=== PATIENT | female | born 1955 | race African-American/Black ===

== ENCOUNTER 2020-11-15 08:53 | Day surgery (SDC) | payer SELFPAY ==
[2020-11-03 12:03] VITALS: BMI 32.5
[2020-11-15] MEDS ORDERED: DEXAMETHASONE SOD PHOSPHATE 4 MG/1 ML VIAL ONE (09:04)
[2020-11-15] MEDS ORDERED: ceFAZolin SODIUM 1 GM VIAL ONE (09:04)
[2020-11-15] MEDS ORDERED: LIDOCAINE HCL/PF 2% SDV 5ML VIAL ONE (09:04)
[2020-11-15] MEDS ORDERED: ROCURONIUM BROMIDE 50 MG/5 ML SYRINGE ONE (09:04)
[2020-11-15] MEDS ORDERED: MIDAZOLAM HCL 2 MG/2 ML SINGLE DOSE VIAL ONE ×2 (09:04)
[2020-11-15] MEDS ORDERED: ONDANSETRON 4 MG/2 ML VIAL ONE ×2 (09:04→17:19)
[2020-11-15] MEDS ORDERED: fentaNYL CITRATE 250 MCG/5 ML VIAL ONE (09:04)
[2020-11-15] MEDS ORDERED: PROPOFOL 20 ML ONE ×2 (09:04→12:52)
[2020-11-15] MEDS ORDERED: ACETAMINOPHEN INJECTION 100 ML IVPB ONE (10:20)
[2020-11-15] MEDS ORDERED: LIDOCAINE HCL 1%, 10 MG/ML (20ML VIAL) ONE (10:27)
[2020-11-15] MEDS ORDERED: EPINEPHrine 1:1,000 1 MG/1 ML - 30ML VIAL (INJECTION) ONE (10:27)
[2020-11-15] MEDS ORDERED: HEPARIN NA (PORCINE) 5,000 UNITS/ML 1ML VIAL ONE (10:39)
[2020-11-15] MEDS ORDERED: BACITRACIN 15 GM TUBE TOPICAL OINTMENT ONE (10:45)
[2020-11-15] MEDS ORDERED: HYDROmorphone HCL/PF 1 MG/ML VIAL ONE (11:57)
[2020-11-15] MEDS ORDERED: oxyCODONE HCL 5 MG TABLET PO PRN ×2 (16:41)
[2020-11-15] MEDS ORDERED: MORPHINE SULFATE 2 MG/ML VIAL IVPUSH PRN (16:41)
[2020-11-15] MEDS ORDERED: PROMETHAZINE HCL 25 MG/1 ML VIAL IVPUSH PRN (16:41)
[2020-11-15] MEDS ORDERED: ONDANSETRON 4 MG/2 ML VIAL IVPUSH PRN (16:41)
[2020-11-15] MEDS ORDERED: ONDANSETRON 4 MG/2 ML VIAL IVPB PRN (16:41)
[2020-11-15] MEDS ORDERED: LACTATED RINGERS SOLUTION 1,000 ML IV SCH (16:45)
[2020-11-15] MEDS ORDERED: CEFAZOLIN 1 GM in DEXTROSE 5%-WATER - 50 ML IVPB SCH (18:00)
[2020-11-15] MEDS: CEFAZOLIN 1 GM/D5W 1 GM/50 ML BAG IVPB SCH (19:13)
[2020-11-16] MEDS: CEFAZOLIN 1 GM/D5W 1 GM/50 ML BAG IVPB SCH ×2 (01:28→08:59)
[2020-11-16] MEDS: HEPARIN NA (PORCINE) 5,000 UNITS/ML 1ML VIAL SQ SCH ×2 (08:46→09:00)
[2020-11-16 09:40] VITALS: BP 110/71; PULSE 95; TEMP 98.3
== END 2020-11-16 10:43 | disposition home or self-care (01) ==
LOC: FASUSAT 08:53 → FM/S 18:48 → FASUSAT 11-16 10:43
PROVIDERS: ATTEND Plastic Surgery
PROC: 0J073ZZ Alteration of Back Subcutaneous Tissue and Fascia, Percutaneous Approach (ICD-10-PCS; 2020-11-15)
PROC: 0J093ZZ Alteration of Buttock Subcutaneous Tissue and Fascia, Percutaneous Approach (ICD-10-PCS; 2020-11-15)
PROC: 0J0M3ZZ Alteration of Left Upper Leg Subcutaneous Tissue and Fascia, Percutaneous Approach (ICD-10-PCS; 2020-11-15)
PROC: 0J0L3ZZ Alteration of Right Upper Leg Subcutaneous Tissue and Fascia, Percutaneous Approach (ICD-10-PCS; 2020-11-15)
PROC: 0J083ZZ Alteration of Abdomen Subcutaneous Tissue and Fascia, Percutaneous Approach (ICD-10-PCS; principal; 2020-11-15 11:27)
DX: Z41.1 Encounter for cosmetic surgery (principal)
CPT/HCPCS: 94760; J0131; J1644